=== PATIENT | female | born 1995 | race Two or more races ===

== ENCOUNTER → 2020-11-07 14:53 | Outpatient (CLI) | payer OTHER | END | disposition home or self-care (01) | LOC: LAB 14:53 | PROVIDERS: ATTEND Psychiatry & Neurology Clinical Neurophysiology | DX: Z20.828 Contact with and (suspected) exposure to other viral communicable diseases (principal) ==

== ENCOUNTER → 2021-04-16 09:06 | Outpatient (CLI) | payer OTHER | END | disposition home or self-care (01) | LOC: LAB 09:06 | PROVIDERS: ATTEND Psychiatry & Neurology Clinical Neurophysiology | DX: U07.1 COVID-19 (principal) ==

== ENCOUNTER 2021-11-03 08:00 | Outpatient (CLI) | payer OTHER | END 2021-11-03 08:30 | disposition home or self-care (01) | LOC: PPH VACUNA 08:00 | PROVIDERS: ATTEND Emergency Medicine Pediatric Emergency Medicine | DX: Z23 Encounter for immunization (principal) ==

== ENCOUNTER 2021-11-10 13:02 | Outpatient (CLI) | payer OTHER | END 2021-11-10 13:15 | disposition home or self-care (01) | LOC: LAB 13:02 | PROVIDERS: ATTEND Psychiatry & Neurology Clinical Neurophysiology | DX: Z20.828 Contact with and (suspected) exposure to other viral communicable diseases (principal) ==